=== PATIENT | male | born 2000 | race Caucasian/White ===

== ENCOUNTER 2023-09-05 11:34 | Emergency (ER) | payer BC, SELFPAY ==
[2023-09-05] VITALS (7 sets, daily range): BP systolic 96–113; BP diastolic 47–76; PULSE 64–79; BMI 20.4
--- NOTE | 2023-09-05 12:29 | ED.GENMED ---
History of Present Illness
General
Chief Complaint: Dizziness
Source: patient
Exam Limitations: none
Time Seen by Provider: 09/05/23 12:24
Nursing documentation reviewed up to this point in time: agreed with
Travel History
Have you had any contact with someone who has COVID-19?: No
Do you have any symptoms of coronavirus? Fever > 100 degrees, chills, cough, shortness of breath, sore throat, loss of taste or smell, muscle aches, or headache?: No
History of Present Illness
History of Present Illness:
Patient is a 23-year-old male who presents to the ER for evaluation. Patient woke up at 1030 this morning at around 11:30 AM felt very dizzy lightheaded like he was going to pass out. He dropped himself to the floor that he does not recall the
entire event. Mom reports she found him on the floor her eyes were open but he seemed dazed and not initially responding. He set up by himself and then lowered himself down to the ground felt dizzy again not sure he passed out a second time. He
had not eaten or drinking anything prior to this occurring. He denies any headache. Denies any recent drug use. He drinks alcohol socially.
Review of Systems
Review of Systems
Allergies reviewed?: Yes
Other source history: family
All Other Systems: ROS reviewed and negative except as documented in HPI and ROS
Constitutional: Denies fever, fatigue or chills
EENT: Reports no symptoms
Respiratory: Reports no symptoms
Cardiac: Reports syncope
ABD/GI: Reports no symptoms; Denies nausea or vomiting
: Reports no symptoms; Denies incontinence
Musculoskeletal: Reports no symptoms
Skin: Reports no symptoms
Neurological: Reports no symptoms
Psychiatric: Reports no symptoms
Phy Exam
General Physical Exam
General Presentation: well appearing
General age: appears stated age
General Skin: warm and dry
General Habitus: normal
General Mental: alert
General Hydration: appears well hydrated
Cardiovascular Exam
Cardiovascular Exam: regular rate/rhythm and normal peripheral pulses
Pulmonary Exam
Pulmonary Exam: lungs clear and no respiratory distress
Musculoskeletal Exam
Musculoskeletal Exam: full ROM
Skin Exam
Skin Exam: normal color and warm/dry
Psychiatric Exam
Psychiatric Exam: normal mood/affect
Course
Orders/Labs/Results
Orders:
Orders
09/05/23 11:40
ECG [Electrocardiogram (*1)] Urgent
Reason for Study: Vertigo / Dizzy
EKG- Treatment ONCE
09/05/23 13:10
Electrocardiogram (*1) Stat
Reason for Study: Other
Other Reason for Exam: chest pain
Cardiac Monitoring- Treatment ONCE
EKG- Treatment ONCE
IV Insert/Care/Rem.- Treatment PRN
Orthostatic VS- Treatment ONCE
0.9% Sodium Chloride 1000 ml [Nss] 1,000 ml IV BOLUS
09/05/23 13:19
Complete Blood Count/With Diff Urgent
Comprehensive Metabolic Panel Urgent
09/05/23 13:19
09/05/23 13:19
Vital Signs
Initial and Last Documented VS:
Initial Vital Signs
Pulse Resp BP Pulse Ox
45 16 112/63 100
09/05/23 11:37 09/05/23 11:37 09/05/23 11:37 09/05/23 11:37
Last Documented Vital Signs
Pulse Resp BP Pulse Ox
70 15 113/59 100
09/05/23 14:30 09/05/23 14:30 09/05/23 14:00 09/05/23 14:30
Restaurant Attendant consulted with Physician
Restaurant Attendant consulted with physician?: Yes
Name of Physician Consulted: Ernesto
MDM/Problems Addressed
Differential Diagnosis Includes:
Not limited to dehydration vasovagal syncope, arrhythmia
MDM/Problems Addressed:
Patient is a 21-year-old male who was brought to the ER for evaluation. Patient was felt lightheaded today and sounds like 2 episodes of syncope. Patient had not eaten or drank anything prior to this occurring. This was about 1 hour after he woke
up. He has no past medical history. He presents awake alert no acute distress. Labs unremarkable. Patient's initial EKG showed a heart rate in the 40s however has been monitored here and has been up to the 70s. He presents in no acute distress
and is asymptomatic. He is stable for discharge home patient was hydrated here will however DC with outpatient cardiology follow-up may need a Holter monitor. Patient is very well-appearing and has no complaints. Mom has seen Dr. Doshi back in
the past and does request follow-up with that group.
*Pulse Oximetry
Patient hypoxic: no
*EKG
Interpreted by ED Provider?: Yes
Heart Rate: 42
Rate: bradycardiac
Rhythm: sinus
Ischemia: no ischemia
*Critical Care Note
Total Time (30-74mins, 75-104mins- exclusive of procedures): Not Applicable
ED Attending Note
-
Portions of this chart may have been created with voice recognition software.� Occasional wrong word or��sound alike� substitutions may have occurred due to the inherent limitations of voice recognition software.
Discharge Plan
Departure
Patient Disposition: Home (Routine Discharge)
Date of Disposition: 09/05/23
Time of Disposition: 15:01
Patient with high blood pressure during this ER visit?: No
Condition: Fair
Covid-19: Not Applicable
Discharge Problem:
Syncope
Instructions: Syncope (Fainting) (DC), Chest Pain DCA Follow Up
Prescriptions:
No Action
No Current Medications
0
Referrals:
Eliel Arboleda MD [Active] -
Anatoly Devries MD [Family Provider] -
Activity Restrictions/Additional Instructions:
Stable hydrated. Follow-up with cardiology as discussed for further evaluation is likely may need a Holter monitor. Return if any worsening of symptoms.
Interventions
Interventions:
ED- Fall Risk Assessment Last Done: 09/05/23 13:25
*ED COVID-19 Vaccine History Last Done: 09/05/23 11:37
ED- Neurological Assessment Last Done: 09/05/23 13:25
ED- Cardiac Assessment Last Done: 09/05/23 13:25
ED Swallowing Screen Last Done: 09/05/23 13:27
Discharge Date and Time
Print Language: ARMENIAN
[2023-09-05] MEDS: NSS 1000 IV (13:20)
[2023-09-05 13:29] LABS: % Basophils 0.9 % (0-2); % Eosinophils 3.7 % (0-6); % Immature Granulocytes 0.3 % (0-0.5); % Neutrophils 65.1 % (42.2-75.2); Absolute Basophils 0.1 10^3/uL (0-0.2); Absolute Eosinophils 0.2 10^3/uL (0-0.7); Absolute Lymphocytes 1.3 10^3/uL (1.2-3.4); Absolute Monocytes 0.5 10^3/uL (0.1-0.6); Absolute Neutrophils 3.8 10^3/uL (1.4-6.5); Hematocrit 46.6 % (39.0-52.0); Hemoglobin 15.5 g/dL (13.0-18.0); Mean Corp Hgb Conc. 33.3 g/dL (33.0-37.0); Mean Corpuscular Hgb 28.1 pg (27.0-31.0); Mean Corpuscular Volume 84.6 fL (80.0-94.0); Mean Platelet Volume 8.9 fL (7.4-10.4); Nucleated Red Blood Cells % 0 % (-); Platelet Count 189 10^3/uL (130-400); Red Blood Cell Count 5.51 10^6/uL (4.70-6.10); Red Cell Dist. Width 12.7 % (11.5-14.5); White Blood Cell Count 5.9 10^3/uL (4.8-10.8)
[2023-09-05 13:52] LABS: ALT (SGPT) 40 U/L (0-50); AST (SGOT) 35 U/L (17-59); Albumin 4.5 g/dl (3.5-5.0); Alkaline Phosphatase 90 U/L (38-126); Blood Urea Nitrogen 17 mg/dl (9-20); Calcium 9.7 mg/dl (8.4-10.2); Carbon Dioxide 27 mmol/L (22-30); Chloride 102 mmol/L (98-107); Estimated Creatinine Clearance > 125 ml/min; Glucose 94 mg/dl (70-99); Potassium 4.6 mmol/L (3.5-5.1); Sodium 136 mmol/L (135-145); Total Bilirubin 0.6 mg/dl (0.2-1.3); Total Protein 6.9 g/dl (6.3-8.2); eGFR > 60.00
== END 2023-09-05 15:15 | disposition home or self-care (01) ==
LOC: EMR 11:34
PROVIDERS: Nurse Practitioner; EMERGENCY PHYSICIAN Student in an Organized Health Care Education/Training Program; FAMILY PHYSICIAN Family Medicine
DX: R55 Syncope and collapse (principal); Z01.810 Encounter for preprocedural cardiovascular examination
CPT/HCPCS: 99283; 96360; 80053; 85025; 93005

== ENCOUNTER → 2023-10-16 14:38 | Outpatient (REF) | payer BC, SELFPAY | LOC: HWRCS 14:38 | PROVIDERS: ATTENDING PHYSICIAN Internal Medicine Cardiovascular Disease; FAMILY PHYSICIAN Physician Assistant Medical | DX: R55 Syncope and collapse (principal) | CPT/HCPCS: 93306 ==